=== PATIENT | female | born 1970 | race Caucasian/White ===

== ENCOUNTER 2019-05-12 12:24 | Day surgery (SDC) | payer BC ==
--- NOTE | 2019-05-11 15:41 | HP ---
Admitting History and Physical - Primary Care Physician PCP: Mike Milligan - Admission Chief Complaint: right breast atypia History of Present Illness: 48 yo female noted to have a right 10 oclock mass on mammo and US 10/2018. 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 Patient is now presenting for WE with NL of this lesion. 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 (Headaches sec to h/o concussions as well as vertigo.) - Past Surgical History Past Surgical History: Yes: ( x 3) - Smoking History Smoking history: Never smoked Home Medications - Allergies Allergies/Adverse Reactions: Allergies Allergy/AdvReac Type Severity Reaction Status Date / Time iodine Allergy Verified 05/11/19 15:44 Family Disease History - Family Disease History Family Disease History: CA: Grandparent (breast cancer 90s), Mother (breast cancer at 32) Other Family History: mat GF colorectal cancer Review of Systems - Review of Systems Constitutional: reports: No Symptoms Cardiovascular: reports: No Symptoms Respiratory: reports: No Symptoms Physical Examination Constitutional: Yes: Well Nourished, Calm Breast(s): Yes: Other (Full C-cup breasts with diffuse bilateral tenderness ( chronic as per patient). No suspicious masses or adenopathy noted bilaterally.) Problem List - Problems (1) Atypical lobular hyperplasia of right breast Code(s): N60.91 - UNSPECIFIED BENIGN MAMMARY DYSPLASIA OF RIGHT BREAST (2) Lobular carcinoma in situ (LCIS) of right breast Code(s): D05.01 - LOBULAR CARCINOMA IN SITU OF RIGHT BREAST Assessment/Plan Right breast WE with NL
[2019-05-11 16:43] VITALS: BMI 24.9
[2019-05-12] MEDS ORDERED: BUPIVACAINE HCL/PF 2.5 MG/ML - 30 ML VIAL IJ ONE ×2 (15:18)
[2019-05-12] MEDS ORDERED: LIDOCAINE HCL 1% PRESERVATIVE FREE - 30ML VIAL ONE (15:18)
[2019-05-12] MEDS ORDERED: GUM MASTIC/STORAX/MSAL/ALCOHOL 1 DRP DROPSBTL MC ONE (15:18)
[2019-05-12] MEDS ORDERED: KETOROLAC TROMETHAMINE 30 MG/1 ML VIAL IVPUSH PRN (15:46)
[2019-05-12] MEDS ORDERED: ONDANSETRON 4 MG/2 ML VIAL IVPUSH PRN ×2 (15:46→17:26)
[2019-05-12] MEDS ORDERED: MIDAZOLAM HCL 2 MG/2 ML SINGLE DOSE VIAL ONE (16:00)
[2019-05-12] MEDS ORDERED: DEXTROSE 5%-0.45% SALINE 1,000 ML IV SCH (16:00)
[2019-05-12] MEDS ORDERED: PROPOFOL 20 ML ONE (16:05)
[2019-05-12] MEDS ORDERED: SUCCINYLCHOLINE CHLORIDE 200 MG/10 ML VIAL ONE (16:05)
[2019-05-12] MEDS ORDERED: KETOROLAC TROMETHAMINE 30 MG/1 ML VIAL ONE (16:15)
[2019-05-12] MEDS ORDERED: ONDANSETRON 4 MG/2 ML VIAL ONE (16:15)
[2019-05-12] MEDS ORDERED: ceFAZolin SODIUM 1 GM VIAL ONE (16:15)
[2019-05-12] MEDS ORDERED: LIDOCAINE HCL/PF 2% SDV 5ML VIAL ONE (16:15)
[2019-05-12] MEDS ORDERED: DEXAMETHASONE SOD PHOSPHATE 4 MG/1 ML VIAL ONE (16:15)
[2019-05-12] MEDS ORDERED: BUPIVACAINE HCL/PF 0.25% (2.5MG/ML) 10 ML VIAL IJ ONE (17:24)
[2019-05-12] MEDS ORDERED: oxyCODONE HCL 5 MG TABLET PO PRN ×2 (17:26)
[2019-05-12] MEDS ORDERED: PROMETHAZINE HCL 25 MG/1 ML VIAL IVPUSH PRN (17:26)
[2019-05-12 19:14] VITALS: TEMP 98
[2019-05-12 19:17] VITALS: BP 123/73; PULSE 62
--- NOTE | 2019-05-13 00:39 | OP ---
DATE OF OPERATION: 05/12/2019 PREOPERATIVE DIAGNOSIS: Right breast atypica and lobular carcinoma in situ. POSTOPERATIVE DIAGNOSIS: Right breast atypica and lobular carcinoma in situ. Status post wide excision. PROCEDURE: Right breast partial mastectomy with needle localization. ANESTHESIA: General laryngeal mask airway. PRIMARY SURGEON: Silas Milligan M.D. INDUSTRIAL RETROFIT DESIGNER: Moriah Shelley COMPLICATIONS: There were no complications. Briefly, the patient is a 48-year-old G3, P3, perimenopausal white female of Ashkenazi Syn[employer] heritage. She has a family history with her mother who had breast cancer at age 32 and underwent bilateral mastectomies. Her maternal grandmother had breast cancer, and maternal grandfather had colorectal cancer. The patient was found to have some densities in the right breast and underwent the right breast retroareolar biopsy in 2016 showing a fibroadenoma. She then was found to have other densities in the right breast 10 o'clock region in October of 2018 and underwent the right breast 10 o'clock ultrasound guided core biopsy which showed a sclerosing papilloma with atypical lobular hyperplasia. She decided initially just to follow this area but followup ultrasound February 2019 continued to show the same region, and due to her strong family history excision was recommended. She did undergo genetic testing which was negative. The patient was brought in through ambulatory surgery on May 12, 2019. She underwent needle localization of a right breast 10 o'clock clip and was brought to the holding area. In the holding area, site verification was made and informed consent was obtained. She was brought into the operating room and laid on the OR table in a supine position. Venodynes were placed on the lower extremities prior to induction. She received general laryngeal mask airway anesthesia and was given a gram of Ancef prior to incision. The right breast was sterilely prepped and draped in the usual fashion with a wire prepped in the field. A curvilinear incision was made around the periareolar upper outer aspect of the right breast nipple areolar complex. Dissection was undertaken around the needle localization, and the breast tissue was completely excised from around the needle localization wire with the wire intact in the middle of the specimen. The specimen was oriented with a long lateral, short superior suture, and specimen radiographs showed removal of the clip in question. Hemostasis was achieved. The breast parenchyma was then reapproximated using 2-0 plain suture. The skin was closed using interrupted 3-0 deep dermal Vicryl suture and a running 4-0 subcuticular Biosyn suture. Mastisol, Steri-Strips were applied over the wound with a compressive dressing placed over this. She was placed in a surgical bra postoperatively. The patient had laryngeal mask airway tube removed at the end of the case and was recovered in the post anesthesia care unit. She will be discharged home the same day when discharge criteria are met. She will follow up in the office in 1 week for check. All sponge, needle counts were correct at the end of the case. SILAS MILLIGAN M.D. [id number]
--- NOTE | 2019-05-18 15:25 | PATH ---
Surgical Pathology Report Patient Name: KAY BELL [facility] [place]. Rec. #: [id number] /Age/Gender: 1970 (Age: 48) / F Account: [id number] Location: [facility] Taken: 05/12/2019 Received: 05/12/2019 Reported: 05/18/2019 Physicians: Mike Milligan M.D. Specimen(s) Received RIGHT BREAST PARTIAL MASTECTOMY Clinical History Right breast atypia (ALH) and papilloma on core biopsy Final Diagnosis BREAST, RIGHT, PARTIAL MASTECTOMY: LOBULAR CARCINOMA IN SITU (LCIS), FLORID TYPE (NUCLEAR GRADE 2) WITH SCATTERED FOCI OF SINGLE CELL NECROSIS. (SEE NOTE). REMAINING BREAST TISSUE SHOWS FLAT EPITHELIAL ATYPIA (FEA), COLUMNAR CELL CHANGE, INTRADUCTAL PAPILLOMA WITH SCLEROSIS, FIBROCYSTIC CHANGE AND ASSOCIATED CALCIFICATIONS. FOCAL PRIOR BIOPSY CHANGES ARE IDENTIFIED. Note: E-Cadherin immunostain (performed at [facility]) is negative in the foci of LCIS, which supports lobular phenotype. Electronically Signed Ivonne Alex M.D. Gross Description Received in formalin, labeled "right partial mastectomy," is a 4.5 x 3.5 x 3.3 cm. arias-yellow, irregular, portion of fibroadipose tissue with a needle localization wire present. There is a short suture marking the superior aspect and a long suture marking the lateral aspect, per the surgeon. There is no skin present. The specimen is inked as follows: superior and lateral blue; inferior green; medial yellow; anterior red; deep black. The specimen is serially sectioned from superior to inferior. Sectioning reveals abundant dense, white, focally firm fibrous tissue. No definitive mass is identified. The specimen is entirely and sequentially submitted in 19 cassettes with the superior margin in cassettes 1-2; the inferior margin in cassette 19; one bisected section each in cassettes 3/4, 5/6, /, 07/14, 09/15, /, 15, 17/18. Total formalin fixation time: Approximately 24 hours 05/13/201905/13/2019
== END 2019-05-12 19:05 | disposition home or self-care (01) ==
LOC: FASU 12:24
PROVIDERS: ATTEND Surgery Surgical Oncology
PROC: 0HBT0ZZ Excision of Right Breast, Open Approach (ICD-10-PCS; principal; 2019-05-12 16:25)
DX: D05.01 Lobular carcinoma in situ of right breast (principal); N60.91 Unspecified benign mammary dysplasia of right breast
CPT/HCPCS: 19281; 84703; 88307-TC; 88342-TC; 94760